=== PATIENT | female | born 1950 | race African-American/Black ===

== ENCOUNTER → 2018-10-03 | Outpatient (CLI) | payer BC ==
--- NOTE | 2018-10-04 15:09 | RAD ---
DATE: 10/03/2018 EXAM: DIGITAL SCREEN BILAT W/CAD HISTORY: Routine screening COMPARISON: 08/25/2015 This study was interpreted with the benefit of Computerized Aided Detection (CAD). Breast Density: SCATTERED The breast parenchyma shows scattered fibroglandular densities. Breast parenchyma level B. FINDINGS: No new or enlarging breast densities are seen. There are scattered benign type calcifications. A grouping of microcalcifications in the medial retroareolar region of the right breast has progressed since the previous study. IMPRESSION: Increasing retroareolar microcalcifications on the right. Magnification and straight mediolateral views are suggested for optimal characterization. BI-RADS CATEGORY: 0 INCOMPLETE: NEEDS ADDITIONAL IMAGING EVALUATION AND/OR PRIOR MAMMOGRAMS FOR COMPARISON. RECOMMENDED FOLLOW-UP: ADD ADDITIONAL IMAGING PQRS compliance statement: Patient information was entered into a reminder system with a target due date for the next mammogram. Mammography is a sensitive method for finding small breast cancers, but it does not detect them all and is not a substitute for careful clinical examination. A negative mammogram does not negate a clinically suspicious finding and should not result in delay in biopsying a clinically suspicious abnormality. "Our facility is accredited by the [employer] Mammography Program."
== END | disposition home or self-care (01) ==
LOC: MAMMO 13:52
PROVIDERS: ATTEND Family Medicine
DX: Z12.31 Encounter for screening mammogram for malignant neoplasm of breast (principal)
CPT/HCPCS: 77067

== ENCOUNTER → 2018-10-09 | Outpatient (CLI) | payer BC ==
--- NOTE | 2018-10-09 13:18 | RAD ---
DATE: 10/09/2018 2:30 PM EXAM: DIGITAL DIAGNOSTIC RT HISTORY: further evaluation of a finding noted on her most recent screening mammographic examination. On that examination indeterminate microcalcifications were reported within the right breast COMPARISON: Prior mammographic imaging 10/03/2018, 08/25/2015 Full field to the ML view of the right breast as well as spot magnification CC and MLO views of the right breast were obtained. Breast Density: The breast parenchyma shows scattered fibroglandular densities. Breast parenchyma level B. FINDINGS: The right breast calcifications are better defined on the spot magnification views, somewhat dystrophic in appearance, some of which are also punctate. IMPRESSION: Right breast probably benign microcalcifications, findings for which additional short-term imaging follow-up is advised. BI-RADS CATEGORY: 3 PROBABLY BENIGN FINDING(S)-SHORT INTERVAL FOLLOW-UP SUGGESTED RECOMMENDED FOLLOW-UP: 6M 6 MONTH FOLLOW-UP follow-up 6 month diagnostic mammography is recommended to include spot magnification views. PQRS compliance statement: Patient information was entered into a reminder system with a target due date 03/09/2019 for the next mammogram. Mammography is a sensitive method for finding small breast cancers, but it does not detect them all and is not a substitute for careful clinical examination. A negative mammogram does not negate a clinically suspicious finding and should not result in delay in biopsying a clinically suspicious abnormality. "Our facility is accredited by the [employer] Mammography Program." MTDD
== END | disposition home or self-care (01) ==
LOC: MAMMO 12:08
PROVIDERS: ATTEND Family Medicine
DX: R92.8 Other abnormal and inconclusive findings on diagnostic imaging of breast (principal)
CPT/HCPCS: 77065

== ENCOUNTER → 2018-12-04 | Outpatient (CLI) | payer BC ==
[~2018-12-04] MED LIST: REGADENOSON 0.4 MG/5 ML DISP.SYRIN. IV ONE
--- NOTE | 2018-12-04 10:28 | CARD ---
MR#: [id number] Date of Study: 12/04/2018 Ordering Physician: ELSA SIMS, Referring Physician: ELSA SIMS Tech: Karlene Henriquez RDCS APPROVED REPORT EXAM: Two-dimensional and M-mode echocardiogram with Doppler and color Doppler. Other Information Quality : GoodHR: 53bpm Rhythm : Atrial Fibrillation INDICATION Atrial Fibrillation 2D DIMENSIONS RVDd2.9 (2.9-3.5cm)Left Atrium(2D)4.7 (1.6-4.0cm) IVSd0.9 (0.7-1.1cm)Aortic Root(2D)2.2 (2.0-3.7cm) LVDd4.8 (3.9-5.9cm)LVOT Diameter1.8 (1.8-2.4cm) PWd0.8 (0.7-1.1cm)LVDs3.6 (2.5-4.0cm) FS (%) 26.0 %SV55.0 ml LVEF(%)52.0 (>50%) M-Mode DIMENSIONS Left Atrium(MM)4.91 (2.5-4.0cm)Aortic Root2.47 (2.2-3.7cm) Aortic Valve AoV Peak [place].107.9cm/sAoV VTI23.9cm AO Peak GR.4.7mmHgLVOT Peak [place]rem[place]ne.79.8cm/s AO Mean GR.2mmHgAVA (VMAX)1.82cm2 HEIKE (VTI)1.80cm2 Mitral Valve MV E Sgesifnq675.1cm/sMV E Peak Gr.11mmHg MV DECEL [id number] A Nukwgugz66.2cm/s MV E Mean Gr.4mmHgE/A Ratio4.7 Pulmonary Valve PV Peak Hxyyzayn846.5cm/s Tricuspid Valve TR P. Ombgetya196oc/sRAP SHBQJIKM6zfMq TR Peak Gr.26sgJrKGEV69goFb LEFT VENTRICLE The left ventricle is normal size. There is normal left ventricular wall thickness. The left ventricu lar systolic function is normal. The Ejection Fraction is 55%. There is normal LV segmental wall jennifer on. Transmitral Doppler flow pattern is abnormal. RIGHT VENTRICLE The right ventricle is normal size. There is normal right ventricular wall thickness. The right ventr icular systolic function is normal. ATRIA The left atrium is mild to moderately dilated. The right atrium is mildly dilated. The interatrial se ptum is intact with no evidence for an atrial septal defect or patent foramen ovale as noted on 2-D o r Doppler imaging. AORTIC VALVE The aortic valve is normal in structure and function. The aortic valve is trileaflet. Doppler and Col or Flow revealed no significant aortic regurgitation. There is no significant aortic valvular stenosi s. MITRAL VALVE The mitral valve is thickened but opens well. There is no evidence of mitral valve prolapse. There is no mitral valve stenosis. Doppler and Color Flow revealed no mitral valve regurgitation noted. TRICUSPID VALVE The tricuspid valve is normal in structure and function. Doppler and Color Flow revealed trace tricus pid regurgitation. There is mild pulmonary hypertension. The PA pressure was estimated at 35 mmHg. Th ere is no tricuspid valve prolapse or vegetation. There is no tricuspid valve stenosis. PULMONIC VALVE The pulmonary valve is normal in structure and function. Doppler and Color Flow revealed no pulmonic valvular regurgitation. There is no pulmonic valvular stenosis. GREAT VESSELS The aortic root is normal in size. The ascending aorta is normal in size. The IVC is normal in size a nd collapses >50% with inspiration. PERICARDIAL EFFUSION There is no evidence of significant pericardial effusion. Critical Notification Critical Value: No <Conclusion> The left ventricular systolic function is normal. The Ejection Fraction is 55%. There is normal LV segmental wall motion. The left atrium is mild to moderately dilated. Trace tricuspid regurgitation. There is mild pulmonary hypertension. The PA pressure was estimated at 35 mmHg. There is no evidence of significant pericardial effusion. Signed by : Elsa Sims, Electronically Approved : 12/04/2018 10:27:32
--- NOTE | 2018-12-04 13:15 | RAD ---
MR#: [id number] Date of Study: 12/04/2018 Ordering Physician: ELSA OJEDA, Referring Physician: RAYO LOPEZ Tech: DRU Montero ARRT (R) (N) APPROVED REPORT Test Type: Pharmacological Stress Nurse/Tech: Laura Servin RN Test Indications: a-fib Cardiac History: Hypertension,pacemaker Medications: See Electronic Medical Record Medical History: See Electronic Medical Record Resting ECG: a-fib Resting Heart Rate: 57 bpm Resting Blood Pressure: 112/62mmHg Pretest Chest Pain: No chest pain Nurse/Tech Notes Irregular rhythm. Lungs are clear to auscultation. Consent: The procedure was explained to the patient in lay terms. Informed consent was witnessed. Zan eout was entered into [employer]. History and Stress Test performed by RT Ammon Bolivar) (N) Pharm. Details Pharmacologic stress testing was performed using 0.4mg per 5ml of regadenoson given intravenously ove r 7-10 seconds. Stress Symptoms No chest pain or symptoms. POST EXERCISE Reason for Termination: Infusion complete Target HR: No Max HR: 103 bpm Max Blood Pressure: 130/62mmHg Blood Pressure response to exercise: Normal blood pressure response during stress. Heart Rate response to exercise: WNL Chest Pain: No. Arrhythmia: No. ST Change: No. INTERPRETATION Stress EKG Conclusion: The resting EKG shows atrial fibrillation with mild nonspecific ST segment kevin nges. The stress EKG shows no significant changes from baseline. No EKG evidence of stress-induced ischemia. Imaging Protocol IMAGE PROTOCOL: Rest Tc-99m/stress Tc-99m 1 day Rest: Stress: Viability: Radiopharm.Tc99m NqtdbctwlYy50e Sestamibi Stlz33iDz 35mCi Img Date 12/04/2018 12/04/2018 Inj-Img Atqk22zys. 45min. Rest Admin Site:IV - Right HandAdministrator:DRU Montero, DIPAK (R)(N) Stress Admin Site: IV - Right HandAdministrator: RT Ammon Bolivar)(N) STRESS DATA End Diast. Vol.84.0mlAv. Heart Rate68.0bpm End Syst. Vol.22.0mlCO Index BSA0.0L/min Myocardial Zfby071.0gEject. Phccdekr78.0% Stress Rates Pk. Fill Rate3.04EDV/secLVtime Pk. Fill 134.49msec Pk. Empty Rate3.40ESV/secLVtime Pk. Qrqca875.05msec 1/3 Pk. Fill1.91EDV/sec Stress Scores Regional WT0.00Summed WT4.00 Regional WM0.00Summed WM4.00 LV Perfusion The stress scans showed no significant defects. The rest scans showed no significant defects. Nuclear imaging shows no reversible ischemia or infarct. Wall Motion Left ventricular systolic function is normal with an ejection fraction of greater than 70%. LV Perf. Quant 17 Seg. SSS0.00 17 Seg. SRS0.00 17 Seg. SDS0.00 Stress Defect Extent (% LAD)0.00Rest Defect Extent (% LAD)0.00Rev. Defect Extent (% LAD)0.00 Stress Defect Extent (% LCX) 0.00Rest Defect Extent (% LCX)0.00Rev. Defect Extent (% LCX)0.00 Stress Defect Extent (% RCA)0.00Rest Defect Extent (% RCA)0.00Rev. Defect Extent (% RCA)0.00 Stress Defect Extent (% DAVID)0.00Rest Defect Extent (% DAVID)0.00Rev. Defect Extent (% DAVID)0.00 Conclusion 1. No EKG evidence of stressed induced ischemia. 2. Nuclear imaging shows no reversible ischemia or infarct. 3. Normal left ventricular systolic function with an ejection fraction of greater than 70%. 4. Low risk Lexiscan nuclear stress test. Signed by : Ramin Thompson MD Electronically Approved : 12/04/2018 13:15:03
== END | disposition home or self-care (01) ==
LOC: NM 08:19
PROVIDERS: ATTEND Internal Medicine Cardiovascular Disease
DX: I27.20 Pulmonary hypertension, unspecified (principal); I48.2 Chronic atrial fibrillation; I10 Essential (primary) hypertension; Z95.0 Presence of cardiac pacemaker
CPT/HCPCS: 78452; 93017; 93306; 96374; A9500; J2785

== ENCOUNTER → 2019-08-20 | Outpatient (CLI) | payer BC ==
--- NOTE | 2019-08-20 08:41 | RAD ---
Examination: ABDOMEN LTD History: Palpable abnormality in the epigastric region Comparison/Correlation: None Findings: Limited ultrasound imaging of the epigastric region was performed. No masses, fluid collections, or other suspicious finding to account for the reported palpable abnormality. Impression: Unremarkable exam. Electronically signed by: Barrett Dickey MD (08/20/2019 8:38 AM) [facility]
== END | disposition home or self-care (01) ==
LOC: US 08:14
PROVIDERS: ATTEND Family Medicine
DX: R19.06 Epigastric swelling, mass or lump (principal)
CPT/HCPCS: 76705